=== PATIENT | male | born 1965 | race Caucasian/White ===

== ENCOUNTER 2017-01-31 13:59 | Emergency (ER) | payer SELFPAY ==
[~2017-01-31] VITALS: Wt 100.0 kg
[2017-01-31] MEDS ORDERED: BACITRACIN 0.9 GM OINT TOP ONE (14:30)
--- NOTE | 2017-01-31 15:00 | ERD ---
ER Documentation Chief Complaint Date/Time DATE: 01/31/17 TIME: 14:51 Chief Complaint lac on right ring finger, happened yesterday HPI 51 yo male comes in with a laceration over the dorsum of the right 4th digit that occurred from glass 2 days ago. He states that the laceration occurred from a piece of glass. Patient states that the laceration was from a piece of glass from the trash can. He has no foreign body sensation. He reports swelling and redness that started today around the laceration. Patient states his last tetanus shot was in the last 2 years. ROS All systems reviewed and are negative except as per history of present illness. Medications Home Meds Active Scripts Sulfamethoxazole/Trimethoprim* (Bactrim Ds* Tablet) 1 Each Tablet, 1 TAB PO BID , #14 TAB Prov:RAKESH RICE PA-C 01/31/17 Ibuprofen* (Motrin*) 600 Mg Tab, 600 MG PO Q6, #30 TAB Prov:RAKESH RICE PA-C 01/31/17 Bacitracin* (Bacitracin Zinc Oint*) 28.35 Gm Oint, 1 APPLIC TOP BID, #1 TUB APPLI TO Prov:RAKESH RICE PA-C 01/31/17 Cephalexin* (Keflex*) 500 Mg Capsule, 500 MG PO QID for 7 Days, CAP Prov:RAKESH RICE PA-C 01/31/17 PMhx/Soc Medical and Surgical Hx: pt denies Medical Hx, pt denies Surgical Hx Hx Alcohol Use: No Hx Substance Use: No Hx Tobacco Use: No Smoking Status: Never smoker Physical Exam Vitals Vital Signs Date Time Temp Pulse Resp B/P Pulse Ox O2 Delivery O2 Flow Rate FiO2 01/31/17 14:06 98.3 82 17 136/70 98 Physical Exam General: Well-developed, well-nourished. The patient appears in no acute distress. HEENT: Head is normocephalic, atraumatic. No scleral icterus. Neck: Supple. Nontender. Lungs: Clear to auscultation. Normal air movement. Heart: Regular rate and rhythm. S1 and S2 are normal. No murmurs, gallops, or rubs. Abdomen: Nondistended. Extremities: There is a 2 cm laceration over the proximal phalanx, dorsum side of the right fourth digit. There is erythema, warmth, swelling. He is able to flex and extend at the DIP, PIP and MCP joint, capillary refill less than 2 seconds. No foreign body appreciated. Neurologic: Alert and oriented 3. No focal deficits. Normal speech and gait. Skin: Normal turgor. No rash or lesions. Results 24 hrs Current Medications Medications (Trade) Dose Ordered Sig/Yahir Route PRN Reason Start Time Stop Time Status Last Admin Dose Admin Bacitracin (Bacitracin Oint (Ud)) 1 applic ONCE ONCE TOP 01/31/17 14:30 01/31/17 14:31 DC DIAGNOSTIC IMAGING REPORT Patient: SAMIR LAMAS : 1965 Age: 51 Sex: M MR #: [id number] DOS: 01/31/17 1421 Ordering MD: RAKESH RICE PA-C Location: [facility] Room/Bed: PROCEDURE: XR Right indexfinger CLINICAL INDICATION: laceration fourth digit over the dorsum of proximal phalanx from glass TECHNIQUE: AP and two oblique views of the right fourth finger were obtained. COMPARISON: No prior studies are available for comparison. FINDINGS: No acute fracture, dislocation, or subluxation is identified. There is soft tissue swelling and mild soft tissue irregularity overlying the proximal interphalangeal joint of the right fourth digit. No radiopaque foreign body is identified. IMPRESSION: 1. No acute fracture or dislocation. 2. Soft tissue swelling and mild soft tissue irregularity overlying the proximal interphalangeal joint of the right fourth digit. No radiopaque foreign body is identified. RPTAT: EE Physician Charlie Date Time Electronically viewed and signed by Physician Charlie on 01/31/2017 15: 41 Procedures/MDM ED course: Patient had wound care, irrigation bacitracin and clean dressing were applied. Medical decision making: This 50-year-old male presents with a laceration on the dorsum of the right fourth digit, from a piece of glass 2 days ago, x-rays do not show evidence of foreign body. There is evidence of cellulitis on the laceration, which patient will be treated with antibiotics. No signs of tenosynovitis, fracture, dislocation. Patient's blood pressure was elevated (>120/80) but appears stable without evidence of hypertension emergency or urgency. The patient was counseled about the risks of hypertension and urged to pursue outpatient monitoring and therapy within a week with their primary care physician. Departure Diagnosis: Primary Impression: Laceration Condition: RAKESH Nur PA-C Jan 31, 2017 15:00
[2017-01-31] MEDS ORDERED: IBUP-1542 PO (15:01)
[2017-01-31] MEDS ORDERED: CEPH-443 PO (15:01)
[2017-01-31] MEDS ORDERED: BACI28.34 TOP (15:01)
[2017-01-31] MEDS ORDERED: SULF1TAB31 PO (15:02)
--- NOTE | 2017-01-31 15:41 | RADRPT ---
PROCEDURE: XR Right indexfinger CLINICAL INDICATION: laceration fourth digit over the dorsum of proximal phalanx from glass TECHNIQUE: AP and two oblique views of the right fourth finger were obtained. COMPARISON: No prior studies are available for comparison. FINDINGS: No acute fracture, dislocation, or subluxation is identified. There is soft tissue swelling and mild soft tissue irregularity overlying the proximal interphalange al joint of the right fourth digit. No radiopaque foreign body is identified. IMPRESSION: 1. No acute fracture or dislocation. 2. Soft tissue swelling and mild soft tissue irregularity overlying the proximal interphalangeal cedirc int of the right fourth digit. No radiopaque foreign body is identified. RPTAT: EE Physician Charlie Date Time Electronically viewed and signed by Physician Charlie on 01/31/2017 15:41 RC/
== END 2017-01-31 15:47 | disposition home or self-care (01) ==
LOC: FTE 13:59
DX: S61.214A Laceration without foreign body of right ring finger without damage to nail, initial encounter (principal); W25.XXXA Contact with sharp glass, initial encounter; Y92.9 Unspecified place or not applicable
CPT/HCPCS: 73140